=== PATIENT | male | born 1990 | race Caucasian/White ===

== ENCOUNTER 2023-04-11 11:16 | Emergency (ER) | payer OTHER ==
[~2023-04-11] VITALS: Ht 172.7 cm; Wt 72.6 kg
[2023-04-11 11:21] VITALS: BP 124/72; PULSE 72; RESP 18; TEMP 97.4; O2SAT 98
[2023-04-11] MEDS ORDERED: ONDANSETRON 4 MG/2 ML VIAL IVP ONE (11:40)
[2023-04-11] MEDS ORDERED: FAMOTIDINE 20 MG/2 ML VIAL IVP ONE (11:40)
[2023-04-11] MEDS ORDERED: NACL 0.9% 1,000 ML IV ONE (11:40)
[2023-04-11 12:09] LABS: BASOPHILS % (AUTO) 0.2 % (0.0-2.0); HEMATOCRIT 46.3 % (36-52); HEMOGLOBIN 16.4 g/dL (12.0-18.0); LYMPHOCYTES # (AUTO) 1.5 K/uL (2.0-11.5); LYMPHOCYTES % (AUTO) 9.5 % (20.5-51.1); MEAN CORPUSCULAR HEMOGLOBIN 31 pg (27-31); MEAN CORPUSCULAR HGB CONC 35 g/dL (33-37); MEAN CORPUSCULAR VOLUME 86.5 fL (80-94); MONOCYTES # (AUTO) 1.5 K/uL (0.8-1.0); MONOCYTES % (AUTO) 9.2 % (1.7-9.3); NEUTROPHILS # (AUTO) 13.1 K/uL (1.8-7.7); NEUTROPHILS % (AUTO) 81.1 % (42.2-75.2); PLATELET COUNT (AUTO) 246 K/uL (140-450); RED BLOOD CELL COUNT(AUTO) 5.35 MIL/uL (4.20-6.10); RED CELL DISTRIBUTION WIDTH 13.3 % (11.6-13.7); WHITE BLOOD COUNT (AUTO) 16.2 K/uL (4.8-10.8)
[2023-04-11 12:12] LABS: ALBUMIN 4.9 g/dL (3.4-5.0); ANION GAP 19.5 (8-16); CALCIUM 9.5 mg/dL (8.5-10.1); CARBON DIOXIDE 24.4 mmol/L (21-32); CREATININE 1.4 mg/dL (0.6-1.3); TOTAL BILIRUBIN 2.1 mg/dL (0.0-1.0); TOTAL PROTEIN, SERUM 8.8 g/dL (6.4-8.2)
[2023-04-11 12:13] LABS: POTASSIUM 2.9 mmol/L (3.5-5.1)
[2023-04-11] MEDS ORDERED: KCL 20 MEQ IN 100 mL PREMIX 100 ML IV ONE (12:15)
[2023-04-11] MEDS ORDERED: POTASSIUM CHLORIDE 10 MEQ TABER PO ONE (12:15)
[2023-04-11 14:12] VITALS: PULSE 56
[2023-04-11] MEDS ORDERED: CAPS42.514 TP (14:20)
[2023-04-11] MEDS ORDERED: FAMO-90 PO (14:20)
[2023-04-11] MEDS ORDERED: ONDA-188 SL (14:20)
[2023-04-11 14:59] VITALS: BP 122/76; RESP 56; TEMP 98; O2SAT 98
== END 2023-04-11 14:59 | disposition home or self-care (01) ==
LOC: MED 11:16
DX: E87.6 Hypokalemia (principal); R11.2 Nausea with vomiting, unspecified; R94.4 Abnormal results of kidney function studies; F12.90 Cannabis use, unspecified, uncomplicated; Z90.49 Acquired absence of other specified parts of digestive tract
CPT/HCPCS: 36415; 76705; 80053; 83690; 85025; 96361; 96365; 96366; 96375; 99285; J2405; J3480; J3490; J7030; Q0092

== ENCOUNTER 2023-07-30 07:23 | Emergency (ER) | payer OTHER ==
[~2023-07-30] VITALS: Ht 172.7 cm; Wt 72.6 kg
[~2023-07-30 07:23] MED LIST: CAPS42.514 TP; FAMO-90 PO; ONDA-188 SL
[2023-07-30 07:35] VITALS: BP 132/88; PULSE 86; RESP 20; TEMP 97.9; O2SAT 99
[2023-07-30] MEDS ORDERED: KETOROLAC 60 MG/2 ML VIAL IM ONE (07:45)
[2023-07-30] MEDS ORDERED: ONDANSETRON 4 MG ODT PO ONE (07:50)
[2023-07-30] MEDS ORDERED: MORPHINE SULFATE 4 MG/ML SYR IM ONE (08:50)
[2023-07-30] MEDS ORDERED: NACL 0.9% 1,000 ML IV ONE (09:05)
[2023-07-30] MEDS ORDERED: ONDA8TAB87 PO (09:49)
[2023-07-30] MEDS ORDERED: IBUP-2213 PO (09:49)
== END 2023-07-30 10:22 | disposition home or self-care (01) ==
LOC: MED 07:23
DX: M54.50 Low back pain, unspecified (principal); R11.2 Nausea with vomiting, unspecified; R10.9 Unspecified abdominal pain; Z79.899 Other long term (current) drug therapy
CPT/HCPCS: 96360; 96372; 99284; J1885; J2270; J7030; Q0162

== ENCOUNTER 2024-03-17 18:49 | Emergency (ER) | payer OTHER ==
[~2024-03-17] VITALS: Ht 170.2 cm; Wt 76.7 kg
[~2024-03-17 18:49] MED LIST changes: +IBUP-2213 PO; +ONDA8TAB87 PO
[2024-03-17 18:54] VITALS: BP 139/64; PULSE 73; RESP 16; TEMP 97.6; O2SAT 100
[2024-03-17] MEDS: BACITRACIN OINT 500 UNITS/GM PKT TP ONE (19:30)
[2024-03-17] MEDS: IBUPROFEN 600 MG TAB PO ONE (19:35)
[2024-03-17 19:40] VITALS: BP 139/64; PULSE 73; RESP 16; TEMP 97.6; O2SAT 100
[2024-03-17] MEDS ORDERED: IBUP-2213 PO (19:40)
[2024-03-17] MEDS ORDERED: BACI-418 TP (19:40)
== END 2024-03-17 19:50 | disposition home or self-care (01) ==
LOC: MED 18:49
DX: S61.210A Laceration without foreign body of right index finger without damage to nail, initial encounter (principal); R03.0 Elevated blood-pressure reading, without diagnosis of hypertension; Z79.899 Other long term (current) drug therapy; X58.XXXA Exposure to other specified factors, initial encounter; Y92.89 Other specified places as the place of occurrence of the external cause; Y93.89 Activity, other specified; Y99.8 Other external cause status
CPT/HCPCS: 12001; 90471; 90715; 99283

== ENCOUNTER 2024-05-18 12:26 | Emergency (ER) | payer OTHER ==
[~2024-05-18] VITALS: Ht 172.7 cm; Wt 77.1 kg
[~2024-05-18 12:26] MED LIST changes: +BACI-418 TP
[2024-05-18 12:42] VITALS: BP 129/72; PULSE 53; RESP 18; TEMP 99.1; O2SAT 99
[2024-05-18] MEDS ORDERED: IBUPROFEN 600 MG TAB PO ONE (15:45)
[2024-05-18] MEDS ORDERED: ACETAMINOPHEN 325 MG TAB PO ONE (15:45)
[2024-05-18] MEDS: KETOROLAC 30 MG/ML VIAL IM ONE (15:58)
[2024-05-18] MEDS ORDERED: IBUP-2213 PO (16:46)
[2024-05-18] MEDS ORDERED: AMOX1TAB8 PO (16:46)
[2024-05-18] MEDS: BACITRACIN OINT 500 UNITS/GM PKT TP ONE (16:51)
[2024-05-18 16:57] VITALS: BP 132/92; PULSE 52; RESP 18; O2SAT 100
== END 2024-05-18 16:57 | disposition home or self-care (01) ==
LOC: MED 12:26
DX: S61.252A Open bite of right middle finger without damage to nail, initial encounter (principal); Z79.899 Other long term (current) drug therapy; W54.0XXA Bitten by dog, initial encounter; Y93.89 Activity, other specified; Y92.89 Other specified places as the place of occurrence of the external cause; Y99.8 Other external cause status
CPT/HCPCS: 73130; 96372; 99283; J1885